=== PATIENT | female | born 1965 | race Caucasian/White ===

== ENCOUNTER 2021-10-07 05:14 | Observation (INO) | payer BC ==
[2021-10-07 05:44] LABS: #Basophils 0.1 thou/uL (0.0-0.2); #Eosinphils 0.1 thou/uL (0.0-0.7); #Monocytes 0.8 thou/uL (0.11-0.59); #Neutrophils 5.6 thou/uL (1.40-6.50); %Basophils 0.6 % (0.0-1.0); %Eosinophils 1.3 % (0.0-10.0); %Lymphocytes 31.2 % (21.0-51.0); %Monocytes 8.7 % (0.0-10.0); %Neutrophils 58.3 % (42.0-75.0); Hemoglobin 14.9 g/dL (12.0-16.0); Mean Corpuscular HGB CONC 35.7 g/dL (32.0-36.0); Mean Corpuscular Hemoglobin 30.5 pg (27.0-31.0); Mean Corpuscular Volume 85.2 fL (78.0-98.0); Mean Platelet Volume 6.7 fL (7.4-10.4); Platelet Count 267 thou/uL (130-400); RBC Distribution Width 11.6 % (11.5-14.5); Red Blood Cell (RBC) Count 4.88 mill/uL (4.20-5.40); White Blood Cell (WBC) Count 9.6 thou/uL (4.8-10.8)
[2021-10-07] MEDS ORDERED: Diltiazem 125 MG/25 ML ONE (05:47)
[2021-10-07 05:58] LABS: INR-International Normal Ratio 0.9; Prothrombin Time 12.2 sec (12.0-14.7)
[2021-10-07 06:11] LABS: ALT (SGPT) 64 U/L (8-55); AST (SGOT) 30 U/L (5-34); Albumin 4.5 g/dL (3.5-5.0); Alkaline Phosphatase 83 U/L (40-110); Anion Gap 16 mmol/L (10-20); BUN (Urea Nitrogen) 19 mg/dL (9.8-20.1); Bilirubin, Total 0.3 mg/dL (0.2-1.2); Calc. Creatinine Clearance 0 mL/min (70-130); Calcium 10.2 mg/dL (7.8-10.44); Carbon Dioxide 24 mmol/L (22-29); Chloride 104 mmol/L (98-107); Globulin 2.9 g/dL (2.4-3.5); Glucose 225 mg/dL (70-105); Potassium 4.2 mmol/L (3.5-5.1); Protein, Total 7.4 g/dL (6.0-8.3); Sodium 140 mmol/L (136-145)
[2021-10-07] MEDS ORDERED: Digoxin 0.5 MG/2 ML AMP ONE (06:19)
[2021-10-07] MEDS ORDERED: Bisacodyl 5 MG TAB PO PRN (07:46)
[2021-10-07] MEDS ORDERED: Ondansetron PF 4 MG/2 ML Vial IVP PRN (07:46)
[2021-10-07 08:03] LABS: SARS-CoV-2 NAA Rapid Test Not Detected (NotDetected)
[2021-10-07 09:10] LABS: Troponin I Less than 0.010 ng/mL (< 0.028)
[2021-10-07] MEDS ORDERED: Dextrose 50% Abboject 50 ML SYRINGE SLOW IVP PRN (11:33)
[2021-10-07] MEDS ORDERED: Dextrose 5% in Water 1,000 ML IV PRN (11:33)
[2021-10-07] MEDS ORDERED: HumaLOG 300 UNITS/3 ML VIAL SC PRN (11:33)
[2021-10-07 12:34] LABS: Troponin I 0.017 ng/mL (< 0.028)
[2021-10-07] MEDS ORDERED: Diltiazem 125 MG in Sodium Chloride 0.9% 100 ML IVPB SCH (13:00)
[2021-10-07 13:21] VITALS: BMI 36.7
[2021-10-07] MEDS: Acetaminophen 325 MG TAB PO PRN ×2 (15:11→20:33)
[2021-10-07] MEDS: metFORMIN 500 MG TAB PO SCH (17:49)
[2021-10-07] MEDS ORDERED: Enoxaparin Sodium 80 MG/0.8 ML SYRINGE SC SCH (21:00)
[2021-10-08 05:22] LABS: #Basophils 0.1 thou/uL (0.0-0.2); #Eosinphils 0.1 thou/uL (0.0-0.7); #Lymphocytes 2.7 thou/uL (1.20-3.40); #Monocytes 0.5 thou/uL (0.11-0.59); #Neutrophils 3.6 thou/uL (1.40-6.50); %Basophils 1.3 % (0.0-1.0); %Eosinophils 1.9 % (0.0-10.0); %Lymphocytes 38.2 % (21.0-51.0); %Monocytes 7.3 % (0.0-10.0); %Neutrophils 51.4 % (42.0-75.0); Hemoglobin 12.8 g/dL (12.0-16.0); Mean Corpuscular HGB CONC 34.4 g/dL (32.0-36.0); Mean Corpuscular Hemoglobin 29.9 pg (27.0-31.0); Mean Corpuscular Volume 87.1 fL (78.0-98.0); Mean Platelet Volume 6.6 fL (7.4-10.4); Platelet Count 224 thou/uL (130-400); Red Blood Cell (RBC) Count 4.28 mill/uL (4.20-5.40); White Blood Cell (WBC) Count 7.1 thou/uL (4.8-10.8)
[2021-10-08 05:34] LABS: Anion Gap 14 mmol/L (10-20); BUN (Urea Nitrogen) 14 mg/dL (9.8-20.1); Calc. Creatinine Clearance 140 mL/min (70-130); Calcium 9.2 mg/dL (7.8-10.44); Carbon Dioxide 24 mmol/L (22-29); Cardiac Risk 6.5 (Less than 4.5); Chloride 104 mmol/L (98-107); Cholesterol 195 mg/dl (< 200 Desired); Glucose 178 mg/dL (70-105); HDL Cholesterol 30 mg/dL (>60 Neg Risk); Potassium 3.8 mmol/L (3.5-5.1); Sodium 138 mmol/L (136-145); Triglycerides 430 mg/dL (Less than 150)
[2021-10-08] MEDS ORDERED: Apixaban 5 MG TAB PO SCH (09:00)
[2021-10-08] MEDS ORDERED: Losartan 25 MG TAB PO SCH (09:00)
[2021-10-08] MEDS ORDERED: Meloxicam 15 MG TAB PO SCH (09:00)
[2021-10-08] MEDS ORDERED: Rosuvastatin 5 MG TAB PO SCH ×3 (09:00→09:30)
[2021-10-08] MEDS ORDERED: Aripiprazole 10 MG TAB PO SCH (09:00)
[2021-10-08] MEDS: metFORMIN 500 MG TAB PO SCH (09:09)
[2021-10-08 12:03] VITALS: BP 140/68; TEMP 97.5
[2021-10-08] MEDS ORDERED: Icosapent Ethyl 1 GM CAPSULE PO SCH (21:00)
[2021-10-09] MEDS ORDERED: Rosuvastatin 5 MG TAB PO SCH (09:00)
== END 2021-10-08 12:58 | disposition home or self-care (01) ==
LOC: SUATTDRO 05:14 → ERS 05:14 → ERHOLD 06:51 → 2NO 13:25
PROVIDERS: ADMIT Internal Medicine; ATTEND Internal Medicine
DX: I48.0 Paroxysmal atrial fibrillation (principal); E78.5 Hyperlipidemia, unspecified; I11.9 Hypertensive heart disease without heart failure; I34.0 Nonrheumatic mitral (valve) insufficiency; R07.89 Other chest pain; E11.9 Type 2 diabetes mellitus without complications; M19.90 Unspecified osteoarthritis, unspecified site; E78.00 Pure hypercholesterolemia, unspecified; E66.9 Obesity, unspecified; Z68.36 Body mass index [BMI] 36.0-36.9, adult; Z79.01 Long term (current) use of anticoagulants; Z79.84 Long term (current) use of oral hypoglycemic drugs; Z79.899 Other long term (current) drug therapy; Z20.822 Contact with and (suspected) exposure to COVID-19
CPT/HCPCS: 36415; 36416; 71045; 80048; 80053; 80061; 84484; 85025; 85610; 85730; 93005; 93306; 96372; G0378; J1160; J1650; U0002

== ENCOUNTER 2024-02-02 10:29 | Outpatient (CLI) | payer BC | END 2024-02-02 10:30 | disposition home or self-care (01) | LOC: BICMAMMO 10:29 | PROVIDERS: ATTEND Registered Nurse | DX: Z12.31 Encounter for screening mammogram for malignant neoplasm of breast (principal) | CPT/HCPCS: 77063; 77067 ==

== ENCOUNTER 2024-02-19 09:31 | Outpatient (CLI) | payer BC | END 2024-02-19 09:32 | disposition home or self-care (01) | LOC: ULT 09:31 | PROVIDERS: ATTEND Internal Medicine Gastroenterology | DX: Z12.11 Encounter for screening for malignant neoplasm of colon (principal); R10.13 Epigastric pain; K76.0 Fatty (change of) liver, not elsewhere classified; K83.8 Other specified diseases of biliary tract; Z90.49 Acquired absence of other specified parts of digestive tract | CPT/HCPCS: 76700 ==

== ENCOUNTER 2025-05-09 08:46 | Outpatient (CLI) | payer SELFPAY ==
[2025-05-09 10:30] LABS: #Basophils 0.06 10x3/uL (0.0-0.2); #Eosinophils 0.12 10x3/uL (0.0-0.7); #Monocytes 0.52 10x3/uL (0.11-0.59); #Neutrophils 5.05 10x3/uL (1.40-6.50); %Basophils 0.8 % (0.0-1.0); %Eosinophils 1.5 % (0.0-10.0); %Lymphocytes 27.1 % (21.0-51.0); %Monocytes 6.5 % (0.0-10.0); %Neutrophils 63.5 % (42.0-75.0); Hematocrit 41.3 % (36.0-47.0); Hemoglobin 13.5 g/dL (12.0-16.0); Mean Corpuscular Hemoglobin 28.4 pg (27.0-31.0); Mean Corpuscular Volume 86.9 fL (78.0-98.0); Platelet Count 201 10x3/uL (130-400); Red Blood Cell (RBC) Count 4.75 mill/uL (4.20-5.40); White Blood Cell (WBC) Count 7.96 10x3/uL (4.8-10.8)
[2025-05-09 10:44] LABS: INR-International Normal Ratio 1.0; Prothrombin Time 12.8 sec (12.0-14.7)
[2025-05-09 10:49] LABS: ALT (SGPT) 41 U/L (Less than 34); AST (SGOT) 26 U/L (11-34); Albumin 4.3 g/dL (3.1-4.5); Alkaline Phosphatase 100 U/L (40-110); Anion Gap 14 mmol/L (10-20); BUN (Urea Nitrogen) 16 mg/dL (9.8-20.1); Bilirubin, Total 0.4 mg/dL (0.3-1.2); Calc. Creatinine Clearance 0 mL/min (70-130); Calcium 9.6 mg/dL (7.8-10.44); Carbon Dioxide 26 mmol/L (22-29); Chloride 103 mmol/L (98-107); Globulin 2.4 g/dL (2.4-3.5); Glucose 193 mg/dL (70-105); Potassium 4.2 mmol/L (3.5-5.1); Sodium 139 mmol/L (136-145)
== END 2025-05-09 08:47 | disposition home or self-care (01) ==
LOC: LABBT 08:46
PROVIDERS: ATTEND Orthopaedic Surgery
DX: Z01.818 Encounter for other preprocedural examination (principal); M17.12 Unilateral primary osteoarthritis, left knee
CPT/HCPCS: 80053; 85025; 85610; 87081

== ENCOUNTER 2025-05-09 09:43 | Outpatient (CLI) | payer BC, OTHER, SELFPAY | END 2025-05-09 09:44 | disposition home or self-care (01) | LOC: CT 09:43 | PROVIDERS: ATTEND Orthopaedic Surgery | DX: Z01.818 Encounter for other preprocedural examination (principal); M17.12 Unilateral primary osteoarthritis, left knee ==

== ENCOUNTER 2025-05-16 06:24 | Observation (INO) | payer BC ==
[2025-05-16] MEDS ORDERED: Tranexamic Acid 1,000 MG/10 ML VIAL ONE (06:50)
[2025-05-16] MEDS ORDERED: Vancomycin HCl 1.5 GM VIAL ONE (06:51)
[2025-05-16] MEDS ORDERED: Ropivacaine 0.5% HCl/PF (150 MG/30 ML VIAL) ONE (07:47)
[2025-05-16] MEDS ORDERED: HYDROcodone/Acetaminophen 10/325 mg Tablet PO PRN (08:30)
[2025-05-16] MEDS ORDERED: Ropivacaine 0.2% 550 ML 550 ML NERVE BLCK SCH (08:30)
[2025-05-16] MEDS ORDERED: Ondansetron PF 4 MG/2 ML Vial IVP PRN ×2 (08:30→11:27)
[2025-05-16] MEDS ORDERED: fentaNYL PF 100 MCG/2 ML SYRINGE ONE (09:05)
[2025-05-16] MEDS ORDERED: PROPOFOL 20 ML ONE (09:05)
[2025-05-16] MEDS ORDERED: Ondansetron PF 4 MG/2 ML Vial ONE (09:05)
[2025-05-16] MEDS ORDERED: Lidocaine 2% 6 ML (Jelly) SYR ONE (09:05)
[2025-05-16] MEDS ORDERED: Lidocaine 1% PF 5 ML VIAL ONE (09:05)
[2025-05-16] MEDS ORDERED: Bupivacaine 0.25% HCL 30 ML VIAL ONE (09:19)
[2025-05-16] MEDS ORDERED: CEFAZOLIN 2 GM VIAL ONE (09:19)
[2025-05-16] MEDS ORDERED: Sevoflurane 250 ML INH ANEST BOTTLE ONE (09:38)
[2025-05-16] MEDS ORDERED: diphenhydrAMINE 25 MG CAP PO PRN (11:27)
[2025-05-16] MEDS ORDERED: Glucagon 1 MG/ML KIT IM PRN (12:55)
[2025-05-16] MEDS ORDERED: Dextrose 50% Abboject 50 ML SYRINGE SLOW IVP PRN (12:55)
[2025-05-16] MEDS: Ketorolac Tromethamine 30 MG (1 mL) VIAL IVP SCH (13:53)
[2025-05-16 14:02] VITALS: BMI 38.9
[2025-05-16] MEDS: Gabapentin 300 MG CAP PO SCH (20:40)
[2025-05-16] MEDS: Acetaminophen 325 MG TAB PO PRN (20:41)
[2025-05-16] MEDS: Metoprolol Succinate XL 25 MG ER.TAB PO SCH (20:42)
[2025-05-16] MEDS: Rosuvastatin 20 MG TAB PO SCH (20:42)
[2025-05-16] MEDS: Aspirin 81 mg Enteric Coated Tablet PO SCH (20:42)
[2025-05-17 05:54] LABS: Hematocrit 33.0 % (36.0-47.0); Hemoglobin 10.8 g/dL (12.0-16.0); Mean Corpuscular Hemoglobin 28.2 pg (27.0-31.0); Mean Corpuscular Volume 86.2 fL (78.0-98.0); Platelet Count 232 10x3/uL (130-400); Red Blood Cell (RBC) Count 3.83 mill/uL (4.20-5.40); White Blood Cell (WBC) Count 11.81 10x3/uL (4.8-10.8)
[2025-05-17 06:13] LABS: Anion Gap 13 mmol/L (10-20); BUN (Urea Nitrogen) 18 mg/dL (9.8-20.1); Calc. Creatinine Clearance 130 mL/min (70-130); Calcium 9.0 mg/dL (7.8-10.44); Carbon Dioxide 25 mmol/L (22-29); Chloride 105 mmol/L (98-107); Glucose 198 mg/dL (70-105); Potassium 3.9 mmol/L (3.5-5.1); Sodium 139 mmol/L (136-145)
[2025-05-17 07:54] VITALS: BP 124/61; TEMP 96.1
[2025-05-17] MEDS: Multivitamin W/ Minerals 1 TAB PO SCH (08:51)
[2025-05-17] MEDS: Pantoprazole 40 MG DR.TAB PO SCH (08:51)
[2025-05-17] MEDS: Ferrous Gluconate 324 MG TAB PO SCH (08:51)
[2025-05-17] MEDS: Senokot S 8.6-50 MG TAB PO SCH (08:52)
[2025-05-17] MEDS: HYDROcodone/Acetaminophen 10/325 mg Tablet PO PRN (08:52)
[2025-05-17] MEDS: Losartan 25 MG TAB PO SCH (08:52)
== END 2025-05-17 14:20 | disposition home or self-care (01) ==
LOC: SDC 06:24 → SURG B 12:26 → SDC 15:17 → SURG B 15:17
PROVIDERS: ADMIT Orthopaedic Surgery; ATTEND Hospitalist
PROC: 0SRD0JZ Replacement of Left Knee Joint with Synthetic Substitute, Open Approach (ICD-10-PCS; principal; 2025-05-16)
DX: M17.12 Unilateral primary osteoarthritis, left knee (principal); E11.9 Type 2 diabetes mellitus without complications; I48.0 Paroxysmal atrial fibrillation; I10 Essential (primary) hypertension; Z79.01 Long term (current) use of anticoagulants; Z79.899 Other long term (current) drug therapy
CPT/HCPCS: 0055T; 27447; 36415; 36416; 80048; 85027; A4306; C1713; C1776; C1889; J0169; J0665; J1100; J1815; J1885; J2250; J2405; J2704; J2795; J3010; J7030